=== PATIENT | male | born 1945 | race Caucasian/White ===

== ENCOUNTER 2016-10-21 16:59 | Emergency (ER) | payer OTHER ==
[~2016-10-21] VITALS: Ht 175.3 cm; Wt 86.2 kg
[2016-10-21 17:12] VITALS: BP 147/72
[2016-10-21] MEDS ORDERED: ACYC400T PO (17:18)
[2016-10-21] MEDS ORDERED: PRED5TAB7 PO (17:18)
[2016-10-21] MEDS ORDERED: NIFE60TE5 PO (17:19)
[2016-10-21] MEDS ORDERED: MIRT15TA PO (17:20)
[2016-10-21] MEDS ORDERED: [UNRECOGNIZED DRUG - CODE] PO (17:21)
[2016-10-21] MEDS ORDERED: LISI10TA11 PO (17:21)
[2016-10-21] MEDS ORDERED: GABA400C PO (17:22)
[2016-10-21] MEDS ORDERED: METO25TA PO (17:22)
[2016-10-21] MEDS ORDERED: PANT40EC PO (17:23)
[2016-10-21] MEDS ORDERED: HYDR200T5 PO (17:24)
[2016-10-21] MEDS ORDERED: MAGN241.1 PO (17:24)
[2016-10-21] MEDS ORDERED: COLC0.6C PO (17:25)
--- NOTE | 2016-10-21 18:29 | NUR ---
PATIENT TO BED 4 AT THIS TIME.
[2016-10-21] MEDS ORDERED: HYDROcodone/APAP 5/325 MG 1 TAB TAB PO ONE (18:40)
--- NOTE | 2016-10-21 19:03 | NUR ---
Patient discharged with v/s stable. Written and verbal after care instructions given and explained. Patient alert, oriented and verbalized understanding of instructions. Ambulatory with steady gait. All questions addressed prior to discharge. ID band removed. Patient advised to follow up with PMD. Rx of NORCO given. Patient educated on indication of medication including possible reaction and side effects. Opportunity to ask questions provided and answered. ENCOURAGED TO APPLY ICE TO RIGHT KNEE FREQUENTLY AT 5-15MINS AT A TIME X 3 DAYS---
--- NOTE | 2016-10-21 19:03 | NUR ---
KNEE IMMOBILIZER PLACED TO RIGHT LOWER EXTREMITY----MEDICATED FOR PAIN CONTROL.
[2016-10-21 19:04] VITALS: BP 138/89
== END 2016-10-21 19:03 | disposition home or self-care (01) ==
LOC: MED 16:59
DX: M25.461 Effusion, right knee (principal); R03.0 Elevated blood-pressure reading, without diagnosis of hypertension; Z79.899 Other long term (current) drug therapy; Z88.5 Allergy status to narcotic agent; Z85.830 Personal history of malignant neoplasm of bone
CPT/HCPCS: 29505; 73562; 99284